=== PATIENT | male | born 1990 | race Caucasian/White ===

== ENCOUNTER 2018-10-07 09:50 | Inpatient (IN) ==
[2018-10-07] MEDS ORDERED: NS 1,000 ML IV ONE (10:50)
--- NOTE | 2018-10-07 11:59 | Diag Imaging Result Doc PS360 ---
EXAM: CT HEAD W/O CONTRAST 10/07/2018 HISTORY: altered mental status TECHNIQUE: This exam was performed using automated exposure control, adjustment of mA or kV according to patient size, and/or use of iterative reconstruction technique. COMMENT: There is no evidence of mass effect, bleed, abnormal extra-axial fluid collection, or hydrocephalus. Compared to the previous study of 11/30/2011 there has been no significant change. The visualized paranasal sinuses are clear. The calvarium is intact. IMPRESSION: No evidence of acute disease. Electronically signed by John Faith 10/07/2018 11:56 AM
[2018-10-07 12:32] LABS: UR AMPHETAMINES QUAL PRESUMPTIVE POSITIVE (NONE DETECT); UR BARBITUATES QUAL NONE DETECTED (NONE DETECT); UR BENZODIAZEPIN QUAL NONE DETECTED (NONE DETECT); UR CANNABINOIDS QUAL PRESUMPTIVE POSITIVE (NONE DETECT); UR COCAINE QUAL NONE DETECTED (NONE DETECT); UR METHADONE QUAL NONE DETECTED (NONE DETECT); UR OPIATES QUAL NONE DETECTED (NONE DETECT); UR OXYCODONE QUAL NONE DETECTED (NONE DETECT); UR PCP QUAL NONE DETECTED (NONE DETECT)
[2018-10-07 12:50] LABS: BASO# 0.01 X1000 (0.0-0.2); BASO% 0.1 % (0.0-0.8); EOS# 0.03 X1000 (0.0-0.7); EOS% 0.2 % (0.0-10.0); HEMATOCRIT 45.5 % (42.0-52.0); HEMOGLOBIN 15.7 g/dL (14.0-18.0); IMM GRAN# 0.03 X1000 (0.0-0.04); IMM GRAN% 0.2 % (0.0-0.5); LYMPH# 1.67 X1000 (1.2-3.4); LYMPH% 11.3 % (20.5-51.1); MCH 27.9 PG (27-31); MCHC 34.5 g/dL (33-37); MONO# 1.22 X1000 (0.11-0.59); MONO% 8.3 % (1.7-9.3); MPV 10.6 FL (7.4-10.4); NEUT% 79.9 % (42.2-75.2); PLT 198 X1000 (130-400); RBC 5.62 XMIL (4.7-6.1); RDW 13.5 % (11.5-14.5); WBC 14.76 X1000 (4.8-10.8)
[2018-10-07 13:30] LABS: AGAP 16; ALB/GLOB RATIO 1.5; ALBUMIN 4.7 g/dL (3.5-5.0); ALKALINE PHOSPHATASE 84 U/L (32-122); BUN 17 mg/dL (8-22); CALCIUM 9.1 mg/dL (8.8-10.2); CHLORIDE 91 mmol/L (98-107); COSMO 260; CREATININE 0.8 mg/dL (0.7-1.2); ESTIMATED GFR > 60; GLUCOSE 84 mg/dL (70-104); GOT 146 U/L (10-34); GPT 83 U/L (10-44); POTASSIUM 3.5 mmol/L (3.5-5.1); SODIUM 129 mmol/L (136-145); TCO2 22 mmol/L (25-35); TOTAL BILIRUBIN 1.84 mg/dL (0.20-1.00); TOTAL PROTEIN 7.8 g/dL (6.3-8.3)
[2018-10-07] MEDS ORDERED: ROCEPHIN IV ONE (14:16)
--- NOTE | 2018-10-07 14:31 | Diag Imaging Result Doc PS360 ---
EXAM: CHEST-1 VIEW HISTORY: fever, shortness of breath TECHNIQUE: Chest single view COMPARISON: 04/29/2011 FINDINGS: The lungs are well expanded. The heart is not enlarged. The vessels are not distended. There are no infiltrates. No effusion identified. IMPRESSION: No pneumonia Electronically signed by John Renteria 10/07/2018 2:29 PM
[2018-10-07 14:40] LABS: URINE SOURCE CLEAN CATCH
[2018-10-07] MEDS ORDERED: CHLORASEPTIC SPRAY MT ONE (14:48)
[2018-10-07] MEDS ORDERED: CHLORASEPTIC SPRAY MT PRN (14:48)
[2018-10-07 14:52] LABS: BILIRUBIN URINE SMALL (NEGATIVE); BLOOD URINE NEGATIVE (NEGATIVE); COLOR YELLOW; GLUCOSE URINE NEGATIVE (NEGATIVE); KETONE URINE 150 mg/dL (NEGATIVE); LEUKOCYTES URINE NEGATIVE (NEGATIVE); NITRITE URINE NEGATIVE (NEGATIVE); PH URINE 6.5; PROTEIN URINE 70 mg/dL (NEGATIVE); SP GRAVITY URINE 1.028; TURBIDITY URINE CLEAR (CLEAR); UROBILINOGEN URINE 3 mg/dL (NORMAL)
[2018-10-07] MEDS ORDERED: NS 50 ML ONE (14:52)
[2018-10-07 14:56] LABS: INR 1.02; PROTIME 14.2 Seconds (11.0-16.0)
[2018-10-07 14:56] LABS: UR EPITHELIAL CELLS <10 /HPF (<10); URINE BACTERIA NEGATIVE /HPF; URINE RBC <10 /HPF (<10); URINE WBC <10 /HPF (<10)
[2018-10-07 14:57] LABS: PTT 31.1 Seconds (22.3-41.8)
[2018-10-07] MEDS ORDERED: VANCOMYCIN IV PER PHARMACY MISC SCH (15:00)
[2018-10-07 15:30] LABS: CK INDEX 0.1 (0.0-2.5); CK-MB 6.49 ng/mL (0.0-5.0)
[2018-10-07] MEDS ORDERED: ZOFRAN IV PRN (15:44)
[2018-10-07] MEDS ORDERED: TYLENOL PO PRN (15:44)
[2018-10-07] MEDS ORDERED: VANCOMYCIN 2,000 MG in NS 500 ML IV ONE (16:00)
[2018-10-07] MEDS: MAXIPIME 1 GM in NS 50 ML IV SCH (16:15)
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
[2018-10-07] MEDS: NS 1,000 ML IV SCH (17:15)
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
[2018-10-08] MEDS: MAXIPIME 1 GM in NS 50 ML IV SCH ×2 (03:00→14:30)
[2018-10-08] MEDS: NS 1,000 ML IV SCH (05:04)
[2018-10-08] MEDS ORDERED: VANCOMYCIN 2,000 MG in NS 500 ML IV ONE (06:00)
--- NOTE | 2018-10-08 07:58 | EKG Report ---
Test Performed on : 10/08/2018 07:42:13 AM Test Reason : tachycardia Blood Pressure : / mmHG Vent. Rate : 084 BPM Atrial Rate : 084 BPM P-R Int : 168 ms QRS Dur : 108 ms QT Int : 380 ms P-R-T Axes : 015 014 064 degrees QTc Int : 449 ms Normal sinus rhythm. Normal ECG When compared with ECG of 07-OCT-2018 14:59, (Unconfirmed) No significant change was found Confirmed by Yrn Alegre MD ([id number]) on 10/09/2018 7:09:05 AM
--- NOTE | 2018-10-08 08:07 | EKG Report ---
Test Performed on : 10/07/2018 2:57:37 PM Test Reason : tachycardia Blood Pressure : / mmHG Vent. Rate : 116 BPM Atrial Rate : 116 BPM P-R Int : 148 ms QRS Dur : 094 ms QT Int : 352 ms P-R-T Axes : 022 -06 048 degrees QTc Int : 489 ms Sinus tachycardia. Otherwise normal ECG When compared with ECG of 30-NOV-2011 20:51, Vent. rate has increased BY 43 BPM Unconfirmed Result
[2018-10-08 09:39] LABS: EOS# 0.15 X1000 (0.0-0.7); EOS% 1.8 % (0.0-10.0); HEMATOCRIT 39.5 % (42.0-52.0); HEMOGLOBIN 13.8 g/dL (14.0-18.0); IMM GRAN# 0.02 X1000 (0.0-0.04); IMM GRAN% 0.2 % (0.0-0.5); LYMPH# 1.77 X1000 (1.2-3.4); LYMPH% 21.4 % (20.5-51.1); MCH 28.7 PG (27-31); MCHC 34.9 g/dL (33-37); MCV 82.1 FL (81-99); MONO# 1.12 X1000 (0.11-0.59); MONO% 13.5 % (1.7-9.3); NEUT# 5.21 X1000 (1.4-6.5); NEUT% 63.1 % (42.2-75.2); PLT 152 X1000 (130-400); RBC 4.81 XMIL (4.7-6.1); RDW 13.3 % (11.5-14.5); WBC 8.27 X1000 (4.8-10.8)
[2018-10-08 09:40] LABS: INR 1.07; PROTIME 14.8 Seconds (11.0-16.0)
[2018-10-08 09:41] LABS: PTT 31.4 Seconds (22.3-41.8)
[2018-10-08 10:44] LABS: AGAP 12; ALB/GLOB RATIO 1.1; ALBUMIN 3.8 g/dL (3.5-5.0); ALKALINE PHOSPHATASE 73 U/L (32-122); BUN 8 mg/dL (8-22); CALCIUM 8.8 mg/dL (8.8-10.2); CHLORIDE 98 mmol/L (98-107); COSMO 267; CREATININE 0.7 mg/dL (0.7-1.2); ESTIMATED GFR > 60; GLUCOSE 105 mg/dL (70-104); GOT 86 U/L (10-34); GPT 67 U/L (10-44); MAGNESIUM 2.1 mg/dL (1.5-2.7); POTASSIUM 3.1 mmol/L (3.5-5.1); SODIUM 134 mmol/L (136-145); TCO2 24 mmol/L (25-35); TOTAL BILIRUBIN 0.94 mg/dL (0.20-1.00); TOTAL PROTEIN 7.2 g/dL (6.3-8.3)
[2018-10-08] MEDS: LOVENOX SUBQ SCH (11:03)
[2018-10-08] MEDS: KLOR-CON PO SCH ×2 (13:55→17:16)
--- NOTE | 2018-10-08 14:18 | ECHO REPORT ---
ORDER DATE: 10/07/2018 ECHOCARDIOGRAPHY: INDICATION: Evaluate for endocarditis. FINDINGS: 1. The right atrium is mildly enlarged at 4.6 cm. 2. Mild tricuspid regurgitation. RV systolic pressure of 24. 3. Normal RV size and systolic function. 4. Mild pulmonic insufficiency. 5. Normal left atrial size at 3.8 cm. 6. No mitral valve prolapse. Mild mitral regurgitation. 7. Normal LV size. End-diastolic dimension of 4.9. Mild left ventricular hypertrophy with a posterior and interventricular septal wall thickness of 1.2 and 1.1 cm, respectively. Normal LV systolic function. Estimated EF of 55% to 60% with normal wall motion. 8. Aortic valve opens well. There is no evidence of stenosis or insufficiency. 9. Aorta appears normal in visualized segments. 10. No pericardial effusion seen. 11. There is no clear evidence of valvular vegetation on this study. If clinical suspicion is high, could consider transesophageal echo. cc: MD Piedad Jaeger CRNP
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
[2018-10-08] MEDS: VANCOMYCIN 2,000 MG in NS 500 ML IV SCH (18:25)
[2018-10-09] MEDS: MAXIPIME 1 GM in NS 50 ML IV SCH ×2 (03:08→14:22)
[2018-10-09] MEDS: VANCOMYCIN 2,000 MG in NS 500 ML IV SCH (06:04)
[2018-10-09 08:29] LABS: AGAP 9; ALB/GLOB RATIO 1.4; ALBUMIN 3.9 g/dL (3.5-5.0); ALKALINE PHOSPHATASE 70 U/L (32-122); BUN 7 mg/dL (8-22); CALCIUM 8.9 mg/dL (8.8-10.2); CHLORIDE 106 mmol/L (98-107); COSMO 279; CREATININE 0.6 mg/dL (0.7-1.2); ESTIMATED GFR > 60; GLUCOSE 96 mg/dL (70-104); GOT 60 U/L (10-34); GPT 60 U/L (10-44); POTASSIUM 3.5 mmol/L (3.5-5.1); SODIUM 141 mmol/L (136-145); TCO2 26 mmol/L (25-35); TOTAL PROTEIN 6.7 g/dL (6.3-8.3)
[2018-10-09] MEDS: LOVENOX SUBQ SCH (09:58)
[2018-10-09] MEDS: ATIVAN IV PRN ×3 (10:09→18:00)
[2018-10-09 17:23] VITALS: BP 139/78
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
[2018-10-10 13:47] LABS: HEPATITIS PROFILE ACUTE SEE COMMENTS
== END 2018-10-09 18:22 | disposition home or self-care (01) | DRG 602 ==
LOC: ED 09:50 → EDIPHOLD 15:26 → SUATTDRO 15:26 → 3N 10-08 17:26
PROVIDERS: ATTEND Internal Medicine
CPT/HCPCS: 70450; 71010; 71045; 80053; 80074; 80101; 80202; 80301; 80307; 80324; 80345; 80346; 80353; 80358; 80361; 80365; 81001; 82550; 82553; 83605; 83735; 83992; 84443; 84484; 85025; 85610; 85730; 87040; 93005; 93306; 96361; 96365; 96366; 96367; 96368; 96375; 97162; 99285; 99291; A9270; C8929; G0431; G0434; G0479; G0480; J0692; J0696; J1650; J2060; J3370; J7030; J7040; Q9957